=== PATIENT | female | born 2000 | race Caucasian/White ===

== ENCOUNTER 2023-01-16 07:07 | Inpatient (IN) | payer SELFPAY ==
[~2023-01-16] VITALS: Ht 165.1 cm; Wt 69.3 kg
[2023-01-16] MEDS ORDERED: ONDANSETRON HCL 4 MG/2 ML VIAL IV ONE ×2 (07:30→10:45)
[2023-01-16 07:35] LABS: Basophils # (auto) 0.1 10 ^3/uL (0-0.2); Basophils % (auto) 0.5 % (0.0-2.0); Eosinophils # (auto) 0 10 ^3/uL (0-0.8); Hematocrit 47.4 % (36.0-46.0); Lymphocytes # (auto) 2.1 10 ^3/uL (0.4-5.4); Lymphocytes % (auto) 16.6 % (10.0-50.0); Mean Corpuscular Hemoglobin 29.9 pg (28.0-32.0); Mean Corpuscular Hgb Conc. 33.8 g/dL (32.0-36.0); Mean Corpuscular Volume 88.4 fL (80.0-100.0); Monocytes # (auto) 0.7 10 ^3/uL (0-1.3); Monocytes % (auto) 5.7 % (0.0-12.0); Neutrophils # (auto) 9.8 10 ^3/uL (1.6-8.6); Neutrophils % (auto) 77.2 % (37.0-80.0); Red Blood Cells 5.36 10^6/uL (4.0-5.20); Red Cell Distribution Width 12.5 % (11.8-14.3); White Blood Cell 12.7 10^3/uL (4.4-10.8)
[2023-01-16] MEDS ORDERED: NORMAL SALINE (07:42)
[2023-01-16] MEDS ORDERED: SODIUM CHLORIDE 0.9% 500 ML IV ONE (08:00)
[2023-01-16] MEDS ORDERED: KETOROLAC TROMETH 30 MG/ML 1ML VIAL IV ONE (08:15)
[2023-01-16] MEDS ORDERED: DICYCLOMINE HCL (10MG/ML) 2 ML AMPULE IM ONE (08:15)
[2023-01-16 08:43] LABS: Chloride 100 mmol/L (98-107); Potassium 3.8 mmol/L (3.5-5.1); Sodium 133 mmol/L (136-145)
[2023-01-16 09:03] LABS: Urine Bacteria MANY /hpf (None Seen); Urine Blood Negative /uL (Negative); Urine Clarity HAZY (Clear); Urine Color Yellow (Yellow); Urine Hyaline Cast MANY /lpf (0 - 2); Urine Mucus FEW (None Seen); Urine Protein, UAD 1+ (Negative); Urine Specific Gravity 1.025 (1.001-1.035); Urine Urobilinogen Normal (Negative); Urine WBC 12 /hpf (0 - 5); Urine pH 5.5 (5.0-8.0)
[2023-01-16 09:05] LABS: Alanine Aminotransferase 14 U/L (7-40); Albumin 5.6 g/dL (3.2-4.8); Alkaline Phosphatase 84 U/L (46-116); Anion Gap 19.2 (5-15); Aspartate Aminotransferase 18 U/L (13-40); BUN/Creatinine Ratio 21.1 (10.0-20.0); Bilirubin, Total 5.2 mg/dL (0.2-1.0); Blood Urea Nitrogen 34 mg/dL (9-23); Calcium 10.6 mg/dL (8.5-10.1); Carbon Dioxide 12.8 mmol/L (20-30); Glucose 132 mg/dL (74-106); Lipase 40 U/L (12-53); Total Protein 9.4 g/dL (5.7-8.2)
[2023-01-16 09:50] VITALS: PULSE 77; RESP 20; O2SAT 98
[2023-01-16] MEDS ORDERED: SODIUM CHLORIDE 0.9% 1,000 ML IV ONE (10:45)
[2023-01-16] MEDS ORDERED: MORPHINE SULFATE 4 MG/ML SYR/VIAL IV ONE (11:15)
[2023-01-16] MEDS ORDERED: SODIUM BICARBONATE 50ML VIAL 150 ML in D5W 5% 1,000 ML IV ONE (12:15)
[2023-01-16] MEDS ORDERED: metroNIDAZOLE 500MG/100ML 100 ML IV ONE (12:30)
[2023-01-16] MEDS ORDERED: ACETAMINOPHEN 325 MG TAB PO PRN (12:30)
[2023-01-16] MEDS ORDERED: PANTOPRAZOLE 40 MG/10 ML VIAL INJ IV ONE (12:30)
[2023-01-16 12:41] LABS: Protein, Urine 49.6 mg/dL (0.0-11.9)
[2023-01-16 12:52] LABS: Creatinine, Urine 294.32 mg/dL (30.0-125.0)
[2023-01-16 13:08] LABS: Amphetamine Screen, Urine Neg (NEGATIVE)
[2023-01-16 13:09] LABS: Barbiturate Scree,Urine Neg (NEGATIVE); Benzodiazephine Screen, Urine Neg (NEGATIVE); Cannabinoid Screen, Urine Pos (NEGATIVE); Cocaine Screen, Urine Neg (NEGATIVE); Opiate Scree,Urine Neg (NEGATIVE); Phencyclidine Screen, Urine Neg (NEGATIVE)
[2023-01-16] MEDS: SODIUM CHLORIDE 0.9% 1,000 ML IV SCH ×2 (13:38→20:50)
[2023-01-16] MEDS ORDERED: POTASSIUM CHL 20 Meq TABLET PO ONE (13:45)
[2023-01-16 15:16] VITALS: BP 129/76; PULSE 76; RESP 20; TEMP 98; O2SAT 98
[2023-01-16] MEDS: metroNIDAZOLE 500MG/100ML 100 ML IV SCH (18:12)
[2023-01-16 18:39] LABS: Chloride 107 mmol/L (98-107); Potassium 4.1 mmol/L (3.5-5.1); Sodium 137 mmol/L (136-145)
[2023-01-16 18:40] LABS: Anion Gap 6.6 (5-15); Carbon Dioxide 23.4 mmol/L (20-30)
[2023-01-16 18:41] LABS: Calcium 8.9 mg/dL (8.7-10.4)
[2023-01-16 18:45] LABS: Glucose 119 mg/dL (74-106)
[2023-01-16 18:46] LABS: BUN/Creatinine Ratio 22.5 (10.0-20.0); Blood Urea Nitrogen 20 mg/dL (9-23)
[2023-01-16 20:00] VITALS: BP 116/60; PULSE 74; RESP 20; TEMP 98.3; O2SAT 98
[2023-01-17] MEDS: metroNIDAZOLE 500MG/100ML 100 ML IV SCH ×3 (01:41→19:00)
[2023-01-17 05:00] VITALS: BP 108/63; PULSE 72; RESP 22; TEMP 97.9; O2SAT 100
[2023-01-17] MEDS: SODIUM CHLORIDE 0.9% 1,000 ML IV SCH ×2 (05:10→17:20)
[2023-01-17 06:06] LABS: Basophils # (auto) 0 10 ^3/uL (0-0.2); Basophils % (auto) 0.3 % (0.0-2.0); Eosinophils # (auto) 0 10 ^3/uL (0-0.8); Eosinophils % (auto) 0.6 % (0.0-7.0); Hematocrit 36.9 % (36.0-46.0); Hemoglobin 12.3 g/dL (12.2-16.2); Lymphocytes # (auto) 1.7 10 ^3/uL (0.4-5.4); Lymphocytes % (auto) 24.4 % (10.0-50.0); Mean Corpuscular Hemoglobin 30.3 pg (28.0-32.0); Mean Corpuscular Hgb Conc. 33.2 g/dL (32.0-36.0); Mean Corpuscular Volume 91.2 fL (80.0-100.0); Monocytes # (auto) 0.7 10 ^3/uL (0-1.3); Monocytes % (auto) 9.3 % (0.0-12.0); Neutrophils # (auto) 4.7 10 ^3/uL (1.6-8.6); Neutrophils % (auto) 65.4 % (37.0-80.0); Nucleated Red Blood Cells % 0.2 %; Red Blood Cells 4.05 10^6/uL (4.0-5.20); Red Cell Distribution Width 12.5 % (11.8-14.3); White Blood Cell 7.1 10^3/uL (4.4-10.8)
[2023-01-17 06:22] LABS: Alkaline Phosphatase 57 U/L (46-116); Anion Gap 6.2 (5-15); BUN/Creatinine Ratio 19.2 (10.0-20.0); Blood Urea Nitrogen 14 mg/dL (9-23); Calcium 8.9 mg/dL (8.7-10.4); Carbon Dioxide 26.8 mmol/L (20-30); Chloride 106 mmol/L (98-107); Glucose 97 mg/dL (74-106); Potassium 4.5 mmol/L (3.5-5.1); Sodium 139 mmol/L (136-145)
[2023-01-17 06:23] LABS: Albumin 3.8 g/dL (3.2-4.8); Aspartate Aminotransferase 16 U/L (13-40); Total Protein 6.4 g/dL (5.7-8.2)
[2023-01-17 06:53] LABS: Alanine Aminotransferase 9 U/L (7-40)
[2023-01-17 09:00] VITALS: BP 110/63; PULSE 78; RESP 20; TEMP 98; O2SAT 100
[2023-01-17 09:07] LABS: Hepatitis B Surface Antigen Negative (Negative)
[2023-01-17 09:27] LABS: Hepatitis A Ab IgM Negative
[2023-01-17 09:28] LABS: Hepatitis B Core IgM Negative; Hepatitis C Antibody Negative (Negative)
[2023-01-17 13:00] VITALS: BP 121/55; PULSE 79; RESP 19; TEMP 98.3; O2SAT 99
[2023-01-17] MEDS: PANTOPRAZOLE 40 MG/10 ML VIAL INJ IV SCH (13:37)
[2023-01-17 16:52] VITALS: BP 122/67; PULSE 70; RESP 15; TEMP 97.9; O2SAT 100
[2023-01-18] MEDS: SODIUM CHLORIDE 0.9% 1,000 ML IV SCH ×3 (01:00→15:07)
[2023-01-18] MEDS: metroNIDAZOLE 500MG/100ML 100 ML IV SCH (01:00)
[2023-01-18 05:44] VITALS: BP 116/76; PULSE 71; RESP 16; TEMP 98.2; O2SAT 99
[2023-01-18 07:32] LABS: Alanine Aminotransferase 10 U/L (7-40); Albumin 3.6 g/dL (3.2-4.8); Alkaline Phosphatase 51 U/L (46-116); Anion Gap 7.6 (5-15); Aspartate Aminotransferase 16 U/L (13-40); BUN/Creatinine Ratio 16.4 (10.0-20.0); Blood Urea Nitrogen 10 mg/dL (9-23); Calcium 8.5 mg/dL (8.5-10.1); Carbon Dioxide 23.4 mmol/L (20-30); Chloride 109 mmol/L (98-107); Glucose 83 mg/dL (74-106); Sodium 140 mmol/L (136-145); Total Protein 5.9 g/dL (5.7-8.2)
[2023-01-18 07:44] LABS: Basophils # (auto) 0 10 ^3/uL (0-0.2); Basophils % (auto) 0.6 % (0.0-2.0); Eosinophils # (auto) 0.1 10 ^3/uL (0-0.8); Eosinophils % (auto) 1.3 % (0.0-7.0); Hematocrit 34.9 % (36.0-46.0); Lymphocytes # (auto) 1.7 10 ^3/uL (0.4-5.4); Lymphocytes % (auto) 27.4 % (10.0-50.0); Mean Corpuscular Hemoglobin 31.2 pg (28.0-32.0); Mean Corpuscular Hgb Conc. 34.3 g/dL (32.0-36.0); Mean Corpuscular Volume 91.1 fL (80.0-100.0); Monocytes # (auto) 0.4 10 ^3/uL (0-1.3); Monocytes % (auto) 7.3 % (0.0-12.0); Neutrophils # (auto) 3.9 10 ^3/uL (1.6-8.6); Neutrophils % (auto) 63.4 % (37.0-80.0); Red Blood Cells 3.83 10^6/uL (4.0-5.20); Red Cell Distribution Width 12.1 % (11.8-14.3); White Blood Cell 6.1 10^3/uL (4.4-10.8)
[2023-01-18 08:00] VITALS: PULSE 92; RESP 18; O2SAT 100
[2023-01-18 09:00] VITALS: BP 120/63; PULSE 92; RESP 18; TEMP 98.3; O2SAT 100
[2023-01-18] MEDS: PANTOPRAZOLE 40 MG/10 ML VIAL INJ IV SCH (10:33)
[2023-01-18] MEDS ORDERED: ZOFR4T PO (11:23)
[2023-01-18] MEDS ORDERED: PANT40T PO (11:23)
[2023-01-18 13:00] VITALS: BP 128/70; PULSE 75; RESP 18; TEMP 98.6; O2SAT 98
[2023-01-18 14:39] VITALS: BP 128/70; PULSE 75; RESP 18; TEMP 36.8; O2SAT 98
== END 2023-01-18 15:28 | disposition home or self-care (01) | DRG 641 ==
LOC: ER 07:07 → OVERFLOW 12:20 → WEST WING 15:03
PROVIDERS: ADMIT Nurse Practitioner Family; ATTEND Family Medicine
DX: E86.0 Dehydration (principal); N17.9 Acute kidney failure, unspecified; E87.21 Acute metabolic acidosis; E83.52 Hypercalcemia; F12.10 Cannabis abuse, uncomplicated; F17.210 Nicotine dependence, cigarettes, uncomplicated; I88.0 Nonspecific mesenteric lymphadenitis; Z88.8 Allergy status to other drugs, medicaments and biological substances; Z88.1 Allergy status to other antibiotic agents
CPT/HCPCS: 36415; 74176; 74181; 76705; 76775; 80048; 80053; 80074; 80307; 81001; 81025; 82248; 82570; 83690; 83735; 84156; 84300; 84702; 85025; 87040; C9113; G0378; J1885; J2405; J3490